=== PATIENT | male | born 2000 | race African-American/Black ===

== ENCOUNTER 2022-09-08 10:03 | Emergency (ER) | payer MEDICAID ==
[~2022-09-08] VITALS: Ht 177.8 cm; Wt 59.0 kg
[2022-09-08 10:10] VITALS: BP 115/72
[2022-09-08 11:05] LABS: BASOPHILS % 0.5 % (0.0-2.0); EOSINOPHILS % 4.2 % (0.0-5.0); HEMATOCRIT. 49.3 % (42.0-52.0); LYMPHOCYTES % 24.6 % (20.0-50.0); MEAN CORPUSCULAR HEMOGLOBIN 26.7 pg (28.0-32.0); MEAN CORPUSCULAR VOLUME 82.2 fL (80.0-94.0); MEAN PLATELET VOLUME 8.5 fl (7.4-10.4); NEUTROPHILS % 65.7 % (40.0-76.0); PLATELET 240 x1000/uL (130-400); RED CELL DISTRIBUTION WIDTH 14.3 % (11.6-14.6)
[2022-09-08 11:16] LABS: CHLORIDE 103 mEq/L (98-107)
[2022-09-08] MEDS ORDERED: MAGNESIUM/ALUMINUM HYDROXIDE/SIMETHICONE 30ML UDC PO STA (12:43)
[2022-09-08 14:11] LABS: CLARITY URINE TURBID (CLEAR); COLOR URINE YELLOW (YELLOW); KETONES URINE NEGATIVE (NEGATIVE); LEUKOCYTE ESTERASE URINE NEGATIVE (NEGATIVE); NITRITE URINE NEGATIVE (NEGATIVE); OCCULT BLOOD URINE NEGATIVE (NEGATIVE); PROTEIN URINE NEGATIVE (NEGATIVE); SPECIFIC GRAVITY URINE 1.019 (1.005-1.030)
[2022-09-08] MEDS ORDERED: PANT20TA17 MT (16:50)
== END 2022-09-08 16:59 | disposition home or self-care (01) ==
LOC: ER 10:03
DX: R10.13 Epigastric pain (principal); E80.7 Disorder of bilirubin metabolism, unspecified; Z88.0 Allergy status to penicillin
CPT/HCPCS: 36415; 76705; 80053; 81003; 85025; 99284

== ENCOUNTER 2022-09-22 09:56 | Emergency (ER) | payer MEDICAID ==
[~2022-09-22] VITALS: Ht 177.8 cm; Wt 59.0 kg
[~2022-09-22 09:56] MED LIST: PANT20TA17 MT
[2022-09-22 10:04] VITALS: BP 122/57
[2022-09-22] MEDS ORDERED: MAGNESIUM/ALUMINUM HYDROXIDE/SIMETHICONE 30ML UDC PO STA (14:49)
[2022-09-22] MEDS ORDERED: DICYCLOMINE 10 MG/5 ML ORAL SYR PO STA (14:49)
[2022-09-22 15:39] LABS: BASOPHILS % 0.7 % (0.0-2.0); EOSINOPHILS % 4.2 % (0.0-5.0); HEMATOCRIT. 43.1 % (42.0-52.0); HEMOGLOBIN. 14.5 g/dL (14.0-18.0); LYMPHOCYTES % 25.8 % (20.0-50.0); MEAN CORPUSCULAR HEMOGLOBIN 27.6 pg (28.0-32.0); MEAN CORPUSCULAR VOLUME 82.1 fL (80.0-94.0); MEAN PLATELET VOLUME 8.3 fl (7.4-10.4); MONOCYTES % 11.2 % (2.0-8.0); NEUTROPHILS % 58.1 % (40.0-76.0); PLATELET 186 x1000/uL (130-400); RED BLOOD CELL COUNT 5.25 mill/uL (4.7-6.1); RED CELL DISTRIBUTION WIDTH 14.7 % (11.6-14.6)
[2022-09-22 15:44] LABS: CHLORIDE 105 mEq/L (98-107)
== END 2022-09-22 16:32 | disposition home or self-care (01) ==
LOC: ER 09:56
DX: R10.84 Generalized abdominal pain (principal); Z88.0 Allergy status to penicillin
CPT/HCPCS: 36415; 80053; 85025; 99283

== ENCOUNTER 2023-03-21 09:11 | Emergency (ER) | payer MEDICAID ==
[~2023-03-21] VITALS: Ht 177.8 cm; Wt 58.0 kg
[2023-03-21 09:26] VITALS: BP 112/63; PULSE 79; RESP 20; TEMP 98.1; O2SAT 100
[2023-03-21 10:09] LABS: CLARITY URINE CLEAR (CLEAR); COLOR URINE YELLOW (YELLOW); GLUCOSE URINE NEGATIVE (NEGATIVE); KETONES URINE 1+ (NEGATIVE); LEUKOCYTE ESTERASE URINE NEGATIVE (NEGATIVE); NITRITE URINE NEGATIVE (NEGATIVE); OCCULT BLOOD URINE NEGATIVE (NEGATIVE); PROTEIN URINE TRACE (NEGATIVE); SPECIFIC GRAVITY URINE 1.032 (1.005-1.030)
[2023-03-21 10:16] LABS: CHLORIDE 103 mEq/L (98-107); INDEX HEMOLYSI 1 (1-3); INDEX ICTERIC 2 (1-4); INDEX LIPEMIC 1 (1-3); POTASSIUM 4.1 mEq/L (3.5-5.1); SODIUM 137 mEq/L (136-145)
[2023-03-21 10:27] LABS: ALANINE AMINOTRANSFERASE 20 IU/L (13-61); ALBUMIN 4.3 g/dL (3.4-5.0); ASPARTATE AMINOTRANSFERASE 18 IU/L (15-37); BASOPHILS % 0.8 % (0.0-2.0); BILIRUBIN TOTAL 2.4 mg/dL (0.1-1.0); CALCIUM 9.4 mg/dL (8.5-10.1); CARBON DIOXIDE 28 mEq/L (21-32); CREATININE 1.1 mg/dL (0.6-1.3); EOSINOPHILS % 3.9 % (0.0-5.0); GLUCOSE 88 mg/dL (70-105); HEMATOCRIT. 48.9 % (42.0-52.0); HEMOGLOBIN. 16.3 g/dL (14.0-18.0); LYMPHOCYTES % 32.4 % (20.0-50.0); MEAN CORPUSCULAR HEMOGLOBIN 27.2 pg (28.0-32.0); MEAN CORPUSCULAR HGB CONC 33.4 g/dL (31.0-37.0); MEAN CORPUSCULAR VOLUME 81.4 fL (80.0-94.0); MEAN PLATELET VOLUME 8.2 fl (7.4-10.4); MONOCYTES % 5.5 % (2.0-8.0); NEUTROPHILS % 57.4 % (40.0-76.0); PLATELET 226 x1000/uL (130-400); PROTEIN TOTAL 8.2 g/dL (6.0-8.3); RED BLOOD CELL COUNT 6.01 mill/uL (4.7-6.1); RED CELL DISTRIBUTION WIDTH 14.1 % (11.6-14.6); UREA NITROGEN BLOOD 15 mg/dL (7-21); WHITE BLOOD COUNT 4.1 x1000/uL (4.5-11.0)
[2023-03-21 10:34] LABS: MUCUS URINE 1+ /lpf (NONE/TRACE); RBC URINE NONE SEEN /hpf (0-2); SQUAMOUS EPITHELIAL CELL URINE NONE SEEN /lpf (RARE/1+)
[2023-03-21] MEDS ORDERED: ACETAMINOPHEN 500MG TABLET PO ONE (11:15)
[2023-03-21 12:45] LABS: BACTERIA URINE NONE SEEN
== END 2023-03-21 13:28 | disposition home or self-care (01) ==
LOC: ER 09:11
DX: R10.32 Left lower quadrant pain (principal); Z88.1 Allergy status to other antibiotic agents
CPT/HCPCS: 36415; 80053; 81003; 85025; 99283

== ENCOUNTER 2023-09-15 15:06 | Emergency (ER) | payer MEDICAID ==
[~2023-09-15] VITALS: Ht 177.8 cm; Wt 59.0 kg
[2023-09-15] MEDS ORDERED: ALBU18HF2 IH (16:24)
[2023-09-15] MEDS ORDERED: P50 MT (16:24)
[2023-09-15 16:54] VITALS: PULSE 60; RESP 16; O2SAT 99
[2023-09-15] MEDS: ALBUTEROL (0.083%) 2.5MG/3ML NEB HHN ONE (16:54)
[2023-09-15 17:12] VITALS: BP 130/74; PULSE 60; RESP 16; TEMP 98.8
== END 2023-09-15 17:14 | disposition home or self-care (01) ==
LOC: ER 15:06
DX: J45.901 Unspecified asthma with (acute) exacerbation (principal); Z88.0 Allergy status to penicillin
CPT/HCPCS: 94640; 99283; Z7610 ×3